=== PATIENT | male | born 1995 | race Two or more races ===

== ENCOUNTER 2025-05-29 14:20 | Inpatient (IN) | payer MEDICAID, OTHER ==
[~2025-05-29] VITALS: Ht 172.7 cm; Wt 88.0 kg
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
[2025-05-29] MEDS: VANCOMYCIN 1GM/250ML KIT 250 ML IV ONE (15:00)
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
[2025-05-29] MEDS: SODIUM CHLORIDE 0.9% 1,000 ML IV ONE ×2 (16:39)
[2025-05-29 16:46] LABS: Nucleated Red Blood Cells % 0.0 %
[2025-05-29 16:48] LABS: Hematocrit 29.4 % (41.0-53.0); Hemoglobin 9.5 g/dL (13.5-17.5); Mean Corpuscular Hemoglobin 22.2 pg (28.0-32.0); Mean Corpuscular Volume 69.2 fL (80.0-100.0)
[2025-05-29] MEDS: CEFEPIME 1GM/50ML 50 ML IV ONE (16:51)
[2025-05-29 17:01] LABS: INR 1.19 (0.9-1.15); Partial Thromboplastin Time 35.2 SEC (24.5-34.5); Prothrombin Time 12.4 sec (9.3-11.8)
[2025-05-29 17:09] LABS: Albumin 3.9 g/dL (3.2-4.8); Alkaline Phosphatase 88 U/L (46-116); Anion Gap 7 (5-15); BUN/Creatinine Ratio 12.7 (10.0-20.0); Calcium 9.1 mg/dL (8.7-10.4); Carbon Dioxide 26 mmol/L (20-31); Glucose 99 mg/dL (74-106); Potassium 4.3 mmol/L (3.5-5.1); Total Protein 7.6 g/dL (5.7-8.2)
[2025-05-29 17:10] LABS: Bilirubin, Total 0.3 mg/dL (0.2-1.0)
[2025-05-29 17:11] LABS: Alanine Aminotransferase < 9 U/L (7-40); Blood Urea Nitrogen 9 mg/dL (9-23); Chloride 98 mmol/L (98-107); Sodium 131 mmol/L (136-145)
[2025-05-29] MEDS: ENOXAPARIN SOD 40 MG/0.4 ML SYRINGE SC SCH (22:00)
[2025-05-29] MEDS ORDERED: NITROGLYCERIN 0.4 MG SL TAB SL PRN (22:00)
[2025-05-29] MEDS ORDERED: DOCUSATE SOD 100 MG CAP PO PRN (22:00)
[2025-05-29] MEDS ORDERED: MORPHINE SULFATE INJ 2 MG/ml SYRG IV PRN (22:00)
[2025-05-29] MEDS ORDERED: CEFEPIME 1GM/50ML 50 ML IV SCH (22:00)
[2025-05-29] MEDS ORDERED: SODIUM CHLORIDE 0.9% 1,000 ML IV SCH (22:00)
[2025-05-29] MEDS ORDERED: ONDANSETRON HCL 4 MG/2 ML VIAL IV PRN (22:00)
[2025-05-29] MEDS ORDERED: CEFEPIME 2GM/50ML NS 50 ML IV SCH (22:00)
[2025-05-29] MEDS ORDERED: ACETAMINOPHEN 325 MG TAB PO PRN (22:00)
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
[2025-05-30] MEDS ORDERED: VANCOMYCIN PER PHARMACY 0 MG IV SCH (04:15)
[2025-05-30] MEDS: IOHEXOL 300 MG/ML 100ML BOTTLE IJ ONE (05:33)
--- NOTE | 2025-05-30 07:19 | DVH ---
CLINICAL INFORMATION: 29 years old, Male; decubitus ulcer, looking for intra pelvic or sacral wound . TECHNIQUE: Axial CT images of the abdomen and pelvis were obtained after the uneventful administrati on of 100 mL Omnipaque 300 IV contrast. Coronal and sagittal reformatted images were obtained, review ed, and stored. All CT scans at this medical facility are performed using dose modulation techniques as appropriate to a performed exam including the following: Automated exposure control was utilized; adjustment of the MA and/or KV according to patient size; and use of iterative reconstruction [employer]. CTDIvol = 14.77 mGy DLP = 1675.47 mGy-cm COMPARISON: None FINDINGS: Motion artifact limits evaluation. Examination is also limited due to beam hardening artifa ct. Lung bases: Mild atelectasis in the lung bases. Liver: Hepatic steatosis. Biliary: No calcified gallstones or biliary ductal dilatation. Spleen: Unremarkable. Pancreas: Grossly unremarkable given the limitations of the examination. Adrenal glands: Unremarkable. No mass. Kidneys: No hydronephrosis or mass. Aorta/Vascular: No aneurysm or significant calcification. Retroperitoneum: No mass or lymphadenopathy. Bowel/mesentery: No small bowel obstruction. No free air or free fluid. Appendix is visualized and ap pears unremarkable. Moderate stool in the colon. Pelvic organs: Grossly unremarkable. Bladder: Moderately distended bladder. Abdominal wall: No mass or hernia. Focal ulceration in the right posterior gluteal region extending a djacent to the ischial tuberosity, measuring up to 3.8 x 3.7 cm and extending up to 3 cm in depth. Th ere are adjacent areas of subcutaneous edema and enhancement, likely cellulitis in the appropriate cl inical setting. No peripherally enhancing fluid collection identified to suggest abscess. There is al so prominent subcutaneous edema and enhancement in the left gluteal subcutaneous tissues, likely cell ulitis. No peripherally enhancing fluid collection identified to suggest abscess. Tiny focus of gas w ithin the left lower gluteal/upper thigh subcutaneous tissues, may be due to gas-forming infection. T here is adjacent ill-defined fluid, possible phlegmon. Partially visualized scrotal edema. There is a lso subcutaneous edema at the midline near the sacrum, probable cellulitis in the appropriate clinica l setting. Bones: There is cortical irregularity at the right ischial tuberosity, possible erosive changes. Oste omyelitis can not be excluded in the appropriate clinical setting. Small ossific density adjacent to the dorsal aspect of the sacrum measuring up to 6 mm. Mild indistinctness of the cortex at the dorsal aspect of the sacrum, can not exclude osteomyelitis. IMPRESSION: 1. Limited examination due to motion artifact and beam hardening artifact. 2. Ulceration in the right posterior gluteal soft tissues with adjacent subcutaneous edema and enhanc ement, likely cellulitis in the appropriate clinical setting. Findings at the right ischial tuberosit y are suspicious for osteomyelitis in the appropriate clinical setting. Correlate with clinical find ings. MRI could be obtained to further characterize if clinically indicated. 3. Subcutaneous edema and enhancement in the left gluteal subcutaneous tissues, likely cellulitis wit hout peripherally enhancing fluid collection identified to suggest abscess. Tiny locule of gas within the left lower gluteal/upper thigh subcutaneous tissues may be due to gas-forming infection, with ad jacent ill-defined fluid, possible phlegmon. 4. Subcutaneous edema and enhancement adjacent to the sacrum, likely cellulitis and possible phlegmon . No peripherally enhancing abscess identified. Cortical irregularity at the dorsal aspect of the low er sacrum with small adjacent ossific density, may be sequelae of osteomyelitis in the appropriate cl inical setting. Correlate with clinical findings. MRI could be obtained to further characterize if c linically indicated. 5. No acute intra-abdominal or intrapelvic abnormality identified. 6. Moderately distended bladder. 7. Partially visualized scrotal edema.
[2025-05-30 08:35] LABS: Hemoglobin 9.2 g/dL (13.5-17.5); Mean Corpuscular Volume 70.5 fL (80.0-100.0); Nucleated Red Blood Cells % 0.0 %
[2025-05-30 08:37] LABS: Hematocrit 29.6 % (41.0-53.0); Mean Corpuscular Hemoglobin 21.8 pg (28.0-32.0)
[2025-05-30 08:47] LABS: Albumin 3.6 g/dL (3.2-4.8); Alkaline Phosphatase 82 U/L (46-116); Anion Gap 7 (5-15); BUN/Creatinine Ratio 14.0 (10.0-20.0); Calcium 8.9 mg/dL (8.7-10.4); Carbon Dioxide 27 mmol/L (20-31); Chloride 104 mmol/L (98-107); Glucose 89 mg/dL (74-106); Potassium 4.2 mmol/L (3.5-5.1); Sodium 138 mmol/L (136-145); Total Protein 6.7 g/dL (5.7-8.2)
[2025-05-30 09:00] LABS: Blood Urea Nitrogen 8 mg/dL (9-23)
[2025-05-30] MEDS: SODIUM CHLORIDE 0.9% 1,000 ML IV SCH (09:00)
[2025-05-30] MEDS: VANCOMYCIN 1.25GM/250ML 250 ML IV ONE (09:00)
[2025-05-30 09:01] LABS: Alanine Aminotransferase < 9 U/L (7-40); Bilirubin, Total 0.2 mg/dL (0.2-1.0)
[2025-05-30 09:15] LABS: Iron 19.0 ug/dL (65-175); Total Iron Binding Capacity 184.0 ug/dL (250-425)
--- NOTE | 2025-05-30 09:55 | DVH ---
CLINICAL HISTORY: immobile TECHNIQUE: Color and duplex doppler imagine of the bilateral lower extremity veins was performed. Ves patricio compression and augmentation if possible was also performed. COMPARISON: None FINDINGS: Right lower Extremity: Right common femoral vein: Normal compressibility and flow. Right superficial femoral vein: Normal compressibility and flow. Right popliteal vein: Normal compressibility and flow. Proximal calf veins demonstrate flow. Left lower Extremity: Left common femoral vein: Normal compressibility and flow. Left superficial femoral vein: Normal compressibility and flow. Left popliteal vein: Normal compressibility and flow. Proximal calf veins demonstrate flow. There is mildly enlarged 1.3 cm left inguinal lymph node. IMPRESSION: NO SONOGRAPHIC EVIDENCE FOR DEEP VENOUS THROMBOSIS IN THE BILATERAL LOWER EXTREMITY VEINS. NONSPECIFIC MILDLY ENLARGED 1.3 CM LEFT INGUINAL LYMPH NODE.
[2025-05-30] MEDS: fentaNYL CITRATE 100 MCG/2 ML VL IV ONE (10:15)
[2025-05-30 10:30] VITALS: PULSE 70; RESP 17; O2SAT 99
[2025-05-30] MEDS: PANTOPRAZOLE 40 MG/10 ML VIAL INJ IV SCH (11:41)
[2025-05-30] MEDS: HYDROcodone-ACET 5/325MG TAB PO PRN (11:48)
[2025-05-30] MEDS ORDERED: PIPERACILLIN-TAZOB 3.375GM 100 ML IV SCH (12:00)
[2025-05-30 13:20] LABS: Urine Protein, UAD TRACE (Negative)
[2025-05-30 13:30] LABS: Amphetamine Screen, Urine Pos (NEGATIVE); Barbiturate Scree,Urine Neg (NEGATIVE); Benzodiazephine Screen, Urine Neg (NEGATIVE); Cannabinoid Screen, Urine Neg (NEGATIVE); Cocaine Screen, Urine Neg (NEGATIVE); Opiate Scree,Urine Neg (NEGATIVE); Phencyclidine Screen, Urine Neg (NEGATIVE)
[2025-05-30] MEDS ORDERED: CLINDAMYCIN 900MG IV 50 ML IV SCH (14:00)
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
--- NOTE | 2025-05-30 16:39 | DVHNC2 ---
Procedure - Procedure: Bilateral gluteal ulcer excisional debridement Location: RT and LT buttock Local Anesthetic: none Consent: obtained prior to the procedure from patient Specimen: Anaerobic and Aerobic cultures EBL: 5ml Details: Patient was first placed in the right lateral decubitus position, stage 3 ulcer on left buttock was identified, ulcer approx [id number] and tracked superiorly approx 1-2 cm, cleaned with sterile saline and betadine, area of necrosis and fibrinous tissue on the inferior and lateral borders was sharply excised, total area excised was approx 4x3 cm and down to healthy bleeding tissue. Cultures were obtained. Wound irrigated and pat dry. Surgicel fibrillar placed over excised area and hemostasis achieved. Wound was packed with 6 in Kerlix gauze, dressed with 4x4 gauze/ABD pad and tape. Then I directed my attention to the right buttock wound, pt placed in the LT lateral decubitus position, wound approx [id number] and down to bone (stage 4), area of approx 4x3cm was sharply excised from the lateral border and down to healthy bleeding tissue, hemostasis achieved with pressure. Wound packed with approx 1/3 of 4" Kerlix roll, dressed: 4x4 gauze, ABD pad and tape. Pt tolerated the procedure well. No complications. DAKOTAH FANG MD May 30, 2025 16:39
[2025-05-30 17:21] VITALS: BP 112/75; PULSE 81; RESP 18; TEMP 97.9; O2SAT 97; O2SAT 98
[2025-05-30] MEDS: PIPERACILLIN-TAZOB 3.375GM 100 ML IV SCH (18:13)
[2025-05-30 20:00] VITALS: PULSE 96; RESP 18; O2SAT 98
[2025-05-30 21:00] VITALS: BP 111/72; PULSE 96; RESP 18; TEMP 98.2; O2SAT 99
[2025-05-30] MEDS: VANCOMYCIN 1.25GM/250ML 250 ML IV SCH (21:45)
[2025-05-31] VITALS (8 sets, daily range): BP systolic 108–129; BP diastolic 66–87; PULSE 56–108; RESP 16–18; TEMP 97.6–98; O2SAT 97–100
[2025-05-31 06:57] LABS: Hematocrit 25.3 % (41.0-53.0); Mean Corpuscular Hemoglobin 22.2 pg (28.0-32.0); Mean Corpuscular Volume 70.7 fL (80.0-100.0); Nucleated Red Blood Cells % 0.1 %
[2025-05-31 07:09] LABS: Anion Gap 9 (5-15); Carbon Dioxide 26 mmol/L (20-31); Chloride 103 mmol/L (98-107); Potassium 3.8 mmol/L (3.5-5.1); Sodium 138 mmol/L (136-145)
[2025-05-31 07:15] LABS: Glucose 93 mg/dL (74-106)
[2025-05-31 07:29] LABS: Hemoglobin 7.9 g/dL (13.5-17.5)
[2025-05-31 07:33] LABS: BUN/Creatinine Ratio 12.9 (10.0-20.0); Blood Urea Nitrogen 8 mg/dL (9-23); Calcium 8.3 mg/dL (8.7-10.4)
--- NOTE | 2025-05-31 17:16 | DVHPNRES ---
Progress Note Date Seen: May 31, 2025 Resident Creating Document: MARY OLVERA RESIDENT Has the PT tested + for MRSA If YES, has PT been informed?: No Medical Necessity Reason Pt with a Central, PICC or Fol: No (rn) Objective vital signs Vital Sign Date Time Temp Pulse Resp B/P (MAP) Pulse Ox O2 Delivery O2 Flow Rate FiO2 05/31/25 17:00 98.0 87 18 120/75 (90) 100 98.0 05/31/25 07:53 Room Air* 0 21 Total Intake and Output 05/30/25 05/30/25 05/31/25 15:00 23:00 07:00 Intake Total 100 ml 1300 ml Output Total 500 ml Balance 100 ml 800 ml medications Current Medications Medications Dose Ordered Sig/Kendell Route Start Time Stop Time Status Last Admin Dose Admin Acetaminophen 325 mg Q4HP PRN PO 05/29/25 22:00 Acetaminophen/ Hydrocodone Bitart 1 tab Q4HP PRN PO 05/29/25 22:00 05/31/25 14:34 1 TAB Ondansetron HCl 4 mg Q4HP PRN IV 05/29/25 22:00 Docusate Sodium 100 mg BIDPRN PRN PO 05/29/25 22:00 Enoxaparin Sodium 40 mg DAILY SC 05/29/25 22:00 Vancomycin HCl 0 ml @ 0 mls/hr UD IV 05/30/25 04:15 Pantoprazole Sodium 40 mg DAILY IV 05/30/25 10:00 05/31/25 10:09 40 MG Sodium Chloride 1,000 ml @ 100 mls/hr Q10H IV 05/30/25 04:30 05/31/25 10:10 100 MLS/HR Vancomycin HCl 250 ml @ 200 mls/hr Q8HR IV 05/30/25 22:00 05/31/25 14:33 200 MLS/HR Piperacillin Sod/ Tazobactam Sod 100 ml @ 25 mls/hr Q6H IV 05/30/25 17:00 05/31/25 16:45 25 MLS/HR laboratory and microbiology Laboratory Tests 05/31/25 05:42 Test 05/31/25 05:42 Range/Units Serum Glucose 93 74-106 mg/dL Microbiology Date/Time Source Procedure Growth Status 05/30/25 10:18 Sacrum Gram Stain - Final Resulted 05/30/25 10:18 Sacrum Wound Culture - Preliminary Resulted 05/30/25 07:26 Voided Urine Urine Culture - Preliminary Resulted 05/29/25 16:25 Blood Blood Culture - Preliminary NO GROWTH AFTER 48 HOURS OF INCUBATION. Resulted My Orders My Orders Orders - MARY OLVERA Procedure Category Date Status Time * Dietary Consult CONS 05/31/25 Transmitted 16:12 Cleanse Wound With KRIS 05/31/25 In Process Wound Clean 16:12 Apply Barrier Cream KRIS 05/31/25 In Process 13:37 Dietary Evaluation Review Comments: 1) Kiran 1 pk BID, MVI w/ minerals 1 tab daily, VitC 500mg BID, Zinc sulfate 220mg BID x 10 days 2) Monitor PO intake, lab values, weight trend, and I/O Expected Outcomes/Goals: To meet >75% estimated needs Wound to improve Fu 3-5 days MARY OLVERA RESIDENT May 31, 2025 17:16
[2025-05-31] MEDS ORDERED: ACETAMINOPHEN 325 MG TAB PO PRN (17:30)
--- NOTE | 2025-05-31 18:23 | DVHPN2 ---
Progress Note - Surgical Date Seen: May 31, 2025 Post op day Post op day: 1 Subjective Patient reports: No new complaints, Feels better Review of Systems: Not Done Objective Vital signs Vital Sign Date Time Temp Pulse Resp B/P (MAP) Pulse Ox O2 Delivery O2 Flow Rate FiO2 05/31/25 17:00 98.0 87 18 120/75 (90) 100 98.0 05/31/25 07:53 Room Air* 0 21 Total Intake and Output 05/30/25 05/30/25 05/31/25 15:00 23:00 07:00 Intake Total 100 ml 1300 ml Output Total 500 ml Balance 100 ml 800 ml Medications Current Medications Medications Dose Ordered Sig/Kendell Route Start Time Stop Time Status Last Admin Dose Admin Acetaminophen 325 mg Q4HP PRN PO 05/29/25 22:00 Acetaminophen/ Hydrocodone Bitart 1 tab Q4HP PRN PO 05/29/25 22:00 Hold 05/31/25 14:34 1 TAB Ondansetron HCl 4 mg Q4HP PRN IV 05/29/25 22:00 Docusate Sodium 100 mg BIDPRN PRN PO 05/29/25 22:00 Enoxaparin Sodium 40 mg DAILY SC 05/29/25 22:00 Vancomycin HCl 0 ml @ 0 mls/hr UD IV 05/30/25 04:15 Pantoprazole Sodium 40 mg DAILY IV 05/30/25 10:00 05/31/25 10:09 40 MG Sodium Chloride 1,000 ml @ 100 mls/hr Q10H IV 05/30/25 04:30 05/31/25 10:10 100 MLS/HR Vancomycin HCl 250 ml @ 200 mls/hr Q8HR IV 05/30/25 22:00 05/31/25 14:33 200 MLS/HR Piperacillin Sod/ Tazobactam Sod 100 ml @ 25 mls/hr Q6H IV 05/30/25 17:00 05/31/25 16:45 25 MLS/HR Ketorolac Tromethamine 15 mg Q6HPRN PRN IV 05/31/25 17:30 06/05/25 17:29 Acetaminophen 650 mg Q4HP PRN PO 05/31/25 17:30 Laboratory Laboratory Tests 05/31/25 05:42 Test 05/31/25 05:42 Range/Units Serum Glucose 93 74-106 mg/dL Microbiology Date/Time Source Procedure Growth Status 05/30/25 10:18 Sacrum Gram Stain - Final Resulted 05/30/25 10:18 Sacrum Wound Culture - Preliminary Resulted 05/30/25 07:26 Voided Urine Urine Culture - Preliminary Resulted 05/29/25 16:25 Blood Blood Culture - Preliminary NO GROWTH AFTER 48 HOURS OF INCUBATION. Resulted Examination: GENERAL:Normal, SKIN:Abnormal (Lt gluteal ulcer stage 3 unpacked with some raw surface oozing, no necrosis, some fibrin at base. RT gluteal ulcer stage 4 with fibrin at base, no necrosis, no bleeding.) Labs and/or images reviewed: Labs reviewed by me (Leukocytosis downtrending, cultures not final ,) Problem List/Assessment/Plan Assessment and Plan B/L gluteal ulcer -Continue with local care: discussed with wound nurse. -Wound nurse will assume daily care. -No need for debridement at this time. Plan discussed with Plan discussed with: Patient Visit Coding Surgery Date of Service if different f: May 31, 2025 Billing Provider: DAKOTAH FANG MD Surgery Visit Codes: [id number] INP/OBS CARE(HIGH) DAKOTAH FANG MD May 31, 2025 18:23
[2025-05-31] MEDS: KETOROLAC TROMETH 30 MG/ML 1ML VIAL IV PRN (20:06)
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
[2025-06-01 01:00] VITALS: BP 113/73; PULSE 67; RESP 18; TEMP 97.8; O2SAT 97
[2025-06-01 05:00] VITALS: BP 123/77; PULSE 76; RESP 18; TEMP 98.5; O2SAT 99
[2025-06-01 08:00] VITALS: RESP 18; O2SAT 98
[2025-06-01 09:16] LABS: Hematocrit 25.4 % (41.0-53.0); Hemoglobin 8.1 g/dL (13.5-17.5); Mean Corpuscular Hemoglobin 22.5 pg (28.0-32.0); Mean Corpuscular Volume 70.6 fL (80.0-100.0); Nucleated Red Blood Cells % 0.0 %
[2025-06-01 09:32] LABS: Albumin 3.2 g/dL (3.2-4.8); Alkaline Phosphatase 66 U/L (46-116); Anion Gap 6 (5-15); BUN/Creatinine Ratio 13.2 (10.0-20.0); Carbon Dioxide 29 mmol/L (20-31); Chloride 104 mmol/L (98-107); Glucose 97 mg/dL (74-106); Potassium 4.5 mmol/L (3.5-5.1); Sodium 139 mmol/L (136-145); Total Protein 6.4 g/dL (5.7-8.2)
[2025-06-01 09:34] LABS: Alanine Aminotransferase < 9 U/L (7-40); Bilirubin, Total < 0.2 mg/dL (0.2-1.0); Blood Urea Nitrogen 7 mg/dL (9-23); Calcium 8.7 mg/dL (8.7-10.4)
--- NOTE | 2025-06-01 10:35 | DVHPN2 ---
Progress Note - Surgical Date Seen: Jun 01, 2025 Post op day Post op day: 2 Subjective Patient reports: No new complaints, Feels better Review of Systems: Not Done Objective Vital signs Vital Sign Date Time Temp Pulse Resp B/P (MAP) Pulse Ox O2 Delivery O2 Flow Rate FiO2 06/01/25 05:00 98.5 76 18 123/77 (92) 99 98.5 05/31/25 20:00 Room Air* 0 21 Total Intake and Output 05/31/25 05/31/25 06/01/25 15:00 23:00 07:00 Intake Total 200 ml 2330 ml 1200 ml Output Total 1550 ml 800 ml Balance 200 ml 780 ml 400 ml Medications Current Medications Medications Dose Ordered Sig/Kendell Route Start Time Stop Time Status Last Admin Dose Admin Acetaminophen 325 mg Q4HP PRN PO 05/29/25 22:00 Acetaminophen/ Hydrocodone Bitart 1 tab Q4HP PRN PO 05/29/25 22:00 Hold 05/31/25 14:34 1 TAB Ondansetron HCl 4 mg Q4HP PRN IV 05/29/25 22:00 Docusate Sodium 100 mg BIDPRN PRN PO 05/29/25 22:00 Enoxaparin Sodium 40 mg DAILY SC 05/29/25 22:00 Vancomycin HCl 0 ml @ 0 mls/hr UD IV 05/30/25 04:15 Pantoprazole Sodium 40 mg DAILY IV 05/30/25 10:00 06/01/25 09:35 40 MG Sodium Chloride 1,000 ml @ 100 mls/hr Q10H IV 05/30/25 04:30 05/31/25 10:10 100 MLS/HR Vancomycin HCl 250 ml @ 200 mls/hr Q8HR IV 05/30/25 22:00 06/01/25 04:56 200 MLS/HR Piperacillin Sod/ Tazobactam Sod 100 ml @ 25 mls/hr Q6H IV 05/30/25 17:00 06/01/25 06:15 25 MLS/HR Ketorolac Tromethamine 15 mg Q6HPRN PRN IV 05/31/25 17:30 06/05/25 17:29 05/31/25 20:06 15 MG Acetaminophen 650 mg Q4HP PRN PO 05/31/25 17:30 Laboratory Laboratory Tests 06/01/25 08:56 Test 06/01/25 08:56 Range/Units Serum Glucose 97 74-106 mg/dL Microbiology Date/Time Source Procedure Growth Status 05/30/25 10:18 Sacrum Gram Stain - Final Resulted 05/30/25 10:18 Sacrum Wound Culture - Preliminary Resulted 05/30/25 07:26 Voided Urine Urine Culture - Preliminary Resulted 05/29/25 16:25 Blood Blood Culture - Preliminary NO GROWTH AFTER 48 HOURS OF INCUBATION. Resulted Examination: GENERAL:Normal Labs and/or images reviewed: Labs reviewed by me (No leukocytosis) Problem List/Assessment/Plan Assessment and Plan B/L gluteal ulcer -Continue with local care:agree with wound nurse plan -Wound nurse will assume daily care. -No need for debridement at this time. -Will follow peripherally -Please call with any concerns Plan discussed with Plan discussed with: Patient Visit Coding Surgery Date of Service if different f: Jun 01, 2025 Billing Provider: DAKOTAH FANG MD Surgery Visit Codes: [id number] INP/OBS CARE(MOD) DAKOTAH FANG MD Jun 01, 2025 10:35
[2025-06-01 12:30] VITALS: BP 135/85; PULSE 80; RESP 19; TEMP 97.7; O2SAT 99
[2025-06-01 20:00] VITALS: PULSE 93; RESP 20; O2SAT 99
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
[2025-06-01 21:00] VITALS: BP 121/81; PULSE 93; RESP 20; TEMP 97.8; O2SAT 99
[2025-06-02 01:00] VITALS: BP 115/76; PULSE 76; RESP 19; TEMP 98; O2SAT 100
[2025-06-02 05:00] VITALS: BP 119/70; PULSE 100; RESP 20; TEMP 98.1; O2SAT 99
[2025-06-02 08:00] VITALS: PULSE 100; RESP 20; O2SAT 99
[2025-06-02 08:45] LABS: Hematocrit 26.9 % (41.0-53.0); Mean Corpuscular Hemoglobin 22.1 pg (28.0-32.0); Mean Corpuscular Volume 71.5 fL (80.0-100.0); Nucleated Red Blood Cells % 0.1 %
[2025-06-02 08:46] LABS: Hemoglobin 8.3 g/dL (13.5-17.5)
[2025-06-02 08:54] LABS: Alkaline Phosphatase 63 U/L (46-116); Anion Gap 5 (5-15); BUN/Creatinine Ratio 13.6 (10.0-20.0); Carbon Dioxide 30 mmol/L (20-31); Chloride 106 mmol/L (98-107); Glucose 94 mg/dL (74-106); Potassium 4.3 mmol/L (3.5-5.1); Sodium 141 mmol/L (136-145); Total Protein 6.1 g/dL (5.7-8.2)
[2025-06-02 08:56] LABS: Alanine Aminotransferase < 9 U/L (7-40); Albumin 3.0 g/dL (3.2-4.8); Bilirubin, Total < 0.2 mg/dL (0.2-1.0); Blood Urea Nitrogen 8 mg/dL (9-23); Calcium 8.6 mg/dL (8.7-10.4)
[2025-06-02 12:46] VITALS: BP 123/85; PULSE 98; RESP 18; TEMP 97.9; O2SAT 100
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
[2025-06-02] MEDS ORDERED: LINE1TAB5 PO (21:44)
[2025-06-02] MEDS ORDERED: LEVO750T40 PO (21:44)
== END 2025-06-02 17:00 | disposition left against medical advice (07) | DRG 710 ==
LOC: EDSEX 14:20 → EDBD 14:20 → ER 14:20 → OVERFLOW 21:48 → WEST WING 05-30 17:27
PROVIDERS: ADMIT Student in an Organized Health Care Education/Training Program; ATTEND Student in an Organized Health Care Education/Training Program
PROC: 0KBN0ZZ Excision of Right Hip Muscle, Open Approach (ICD-10-PCS; principal; 2025-05-30)
PROC: 0KBP0ZZ Excision of Left Hip Muscle, Open Approach (ICD-10-PCS; 2025-05-30)
DX: A41.9 Sepsis, unspecified organism (principal); L89.152 Pressure ulcer of sacral region, stage 2; L89.312 Pressure ulcer of right buttock, stage 2; L89.322 Pressure ulcer of left buttock, stage 2; F15.10 Other stimulant abuse, uncomplicated; D50.9 Iron deficiency anemia, unspecified; M86.18 Other acute osteomyelitis, other site; G82.20 Paraplegia, unspecified; N39.0 Urinary tract infection, site not specified; L03.317 Cellulitis of buttock; Z88.8 Allergy status to other drugs, medicaments and biological substances; Z74.01 Bed confinement status; Z53.29 Procedure and treatment not carried out because of patient's decision for other reasons
CPT/HCPCS: 11047; 36415; 71045; 74178; 80048; 80053; 80202; 80307; 81001; 82728; 83036; 83540; 83550; 83605; 84443; 85025; 85379; 85610; 85652; 85730; 86141; 87040; 87077; 87081; 87086; 87088; 87186; 93970; 99291; 99292; G0378; J1885; J2470; J2543